=== PATIENT | male | born 1995 | race Caucasian/White ===

== ENCOUNTER 2017-02-27 22:35 | Emergency (ER) | payer SELFPAY ==
[~2017-02-27] VITALS: Ht 177.8 cm; Wt 63.6 kg
[2017-02-27 22:40] VITALS: TEMP 99
[2017-02-27 23:45] LABS: HEMATOCRIT 44.4 % (36.0-47.0); HEMOGLOBIN 15.5 g/dl (12.5-16.1); MEAN CELL VOLUME 90 fl (80.0-95.0); MEAN CORPUSCULAR HEMOGLOBIN 31 pg (26.0-32.0); MEAN CORPUSCULAR HGB CONC 35 g/dl (33.0-37.0); MEAN PLATELET VOLUME 12.4 fl (7.4-10.4); PLATELET COUNT 115 K/mm3 (130-400); RED BLOOD COUNT 4.93 M/mm3 (4.20-5.60); REDCELL DISTRIBUTION WIDTH-CV 11.9 % (11.5-14.5)
[2017-02-27 23:59] LABS: BILIRUBIN,TOTAL 0.4 mg/dL (0.0-1.0); C-REACTIVE PROTEIN 6.4 mg/dL (0.0-0.9); CALCIUM 9.5 mg/dL (8.4-10.2); CREATININE, serum 0.78 mg/dL (0.66-1.25); POTASSIUM 3.6 mmol/L (3.4-5.0); TOTAL PROTEIN 8.3 gm/dL (6.4-8.2)
[2017-02-28 00:03] LABS: BAND 9 % (0-10); LYMPHOCYTE 39 % (20.0-51.0); NEUTROPHILS 40 % (42.0-75.2)
[2017-02-28 00:04] LABS: POLYCHROMASIA 1+
[2017-02-28] MEDS ORDERED: AMOXICILLIN 8751 TAB PO (00:51)
[2017-02-28 01:39] VITALS: BP 101/58; PULSE 84
== END 2017-02-28 01:39 | disposition home or self-care (01) ==
LOC: COL.ER 22:35
PROVIDERS: Physician Assistant
DX: S00.83XA Contusion of other part of head, initial encounter (principal); L03.90 Cellulitis, unspecified; W22.8XXA Striking against or struck by other objects, initial encounter
CPT/HCPCS: J1885; J2405; J7030